=== PATIENT | female | born 1980 | race Caucasian/White ===

== ENCOUNTER 2019-01-29 06:49 | Emergency (ER) | payer SELFPAY ==
[~2019-01-29] VITALS: Ht 167.6 cm; Wt 59.0 kg
[2019-01-29] MEDS ORDERED: IBUPROFEN 600MG TABLET PO ONE (07:45)
[2019-01-29] MEDS ORDERED: KETOROLAC 60MG/2ML VIAL IM ONE (08:00)
[2019-01-29 09:02] VITALS: BP 118/67
== END 2019-01-29 09:05 | disposition home or self-care (01) ==
LOC: ER 06:49
DX: M25.511 Pain in right shoulder (principal); V49.59XA Passenger injured in collision with other motor vehicles in traffic accident, initial encounter; Y93.89 Activity, other specified; Y92.410 Unspecified street and highway as the place of occurrence of the external cause
CPT/HCPCS: 73030; 81025; 96372; 99283; J1885